=== PATIENT | female | born 1950 | race Hispanic/Latino ===

== ENCOUNTER → 2022-06-10 | Outpatient (CLI) | payer MEDICARE ==
[~2022-06-10] MED LIST: GLIPIZIDE5 MG PO; LISINOPRIL40 MG PO; LYRICA50 MG PO; TRICOR145 MG PO
== END ==
LOC: RAD 08:27
PROVIDERS: ATTEND Family Medicine
DX: M54.12 Radiculopathy, cervical region (principal)
CPT/HCPCS: 72050